=== PATIENT | female | born 1960 | race Caucasian/White ===

== ENCOUNTER 2017-08-11 08:08 | Outpatient (CLI) | payer BC ==
[2017-08-11 09:46] LABS: Hematocrit 42.5 % (36.0-47.0); Mean Platelet Volume 7.6 fL (7.4-10.4); Red Blood Cell (RBC) Count 4.69 mill/uL (4.20-5.40); White Blood Cell (WBC) Count 9.6 thou/uL (4.8-10.8)
[2017-08-11 10:09] LABS: Anion Gap 17 mmol/L (10-20); BUN (Urea Nitrogen) 34 mg/dL (9.8-20.1); Calc. Creatinine Clearance 0 mL/min (70-130); Calcium 10.6 mg/dL (7.8-10.44); Carbon Dioxide 22 mmol/L (22-29); Chloride 104 mmol/L (98-107); Estimated GFR-MDRD 37
--- NOTE | 2017-08-11 16:14 | EKG ---
Test Reason : Blood Pressure : / mmHG Vent. Rate : 066 BPM Atrial Rate : 066 BPM P-R Int : 142 ms QRS Dur : 092 ms QT Int : 436 ms P-R-T Axes : 003 -14 016 degrees QTc Int : 457 ms Normal sinus rhythm Low voltage QRS Cannot rule out Anterior infarct (cited on or before 13-SEP-2011) Abnormal ECG When compared with ECG of 15-MAY-2012 14:34, No significant change was found Confirmed by DR. Cipriano MILES ([id number]) on 08/11/2017 4:13:53 PM Referred By: WICHO Confirmed By:DR. Cipriano MILES
== END 2017-08-11 08:09 | disposition home or self-care (01) ==
LOC: LABBT 08:08
PROVIDERS: ATTEND Orthopaedic Surgery
CPT/HCPCS: 80048; 85027; 85610; 86850; 86900; 86901; 93005; 93010

== ENCOUNTER 2017-12-07 07:58 | Outpatient (CLI) | payer BC | END 2017-12-07 07:59 | disposition home or self-care (01) | LOC: BICMAMMO 07:58 | PROVIDERS: ATTEND Obstetrics & Gynecology | DX: Z12.31 Encounter for screening mammogram for malignant neoplasm of breast (principal) | CPT/HCPCS: 77063; 77067 ==

== ENCOUNTER 2018-03-25 17:25 | Observation (INO) | payer BC ==
[~2018-03-25 17:25] MED LIST: ISOVUE-370 76%-LOCM 1 ML ONE
[2018-03-25] MEDS ORDERED: Ondansetron ODT 4 MG TAB ONE (17:59)
--- NOTE | 2018-03-25 18:38 | RAD ---
PORTABLE UPRIGHT FRONTAL CHEST RADIOGRAPH: 03/25/2018 HISTORY: Short of breath. COMPARISON: None. FINDINGS: No pneumothorax, pleural fluid, focal consolidation, or alveolar edema. Heart and mediastinal contou r are unremarkable. IMPRESSION: No acute findings. POS: [facility]
[2018-03-25] MEDS ORDERED: Nitroglycerin 2% Ointment 1 INCH/1 GM Packet ONE (19:06)
[2018-03-25 19:11] LABS: #Basophils 0.1 thou/uL (0.0-0.2); #Eosinphils 0.1 thou/uL (0.0-0.7); #Monocytes 0.9 thou/uL (0.11-0.59); #Neutrophils 11.3 thou/uL (1.40-6.50); %Basophils 0.4 % (0.0-1.0); %Eosinophils 0.5 % (0.0-10.0); %Lymphocytes 14.1 % (21.0-51.0); %Monocytes 5.9 % (0.0-10.0); %Neutrophils 79.1 % (42.0-75.0); Hemoglobin 14.4 g/dL (12.0-16.0); Mean Corpuscular HGB CONC 35.1 g/dL (32.0-36.0); Mean Corpuscular Hemoglobin 31.8 pg (27.0-31.0); Mean Corpuscular Volume 90.4 fl (81.0-99.0); Mean Platelet Volume 7.5 fL (7.4-10.4); Platelet Count 264 thou/uL (130-400); RBC Distribution Width 11.8 % (11.5-14.5); Red Blood Cell (RBC) Count 4.53 mill/uL (4.20-5.40); White Blood Cell (WBC) Count 14.3 thou/uL (4.8-10.8)
[2018-03-25 19:33] LABS: ALT (SGPT) 28 U/L (8-55); AST (SGOT) 30 U/L (5-34); Albumin 4.3 g/dL (3.5-5.0); Alkaline Phosphatase 101 U/L (40-150); Anion Gap 15 mmol/L (10-20); BUN (Urea Nitrogen) 25 mg/dL (9.8-20.1); Bilirubin, Total 1.2 mg/dL (0.2-1.2); CK (CPK) 67 U/L (29-168); Calc. Creatinine Clearance 0 mL/min (70-130); Calcium 9.4 mg/dL (7.8-10.44); Carbon Dioxide 25 mmol/L (22-29); Estimated GFR-MDRD 51; Globulin 3.5 g/dL (2.4-3.5); Glucose 141 mg/dL (70-105); Lipase 31 U/L (8-78); Magnesium 2.2 mg/dL (1.6-2.6); Potassium 4.1 mmol/L (3.5-5.1); Protein, Total 7.8 g/dL (6.0-8.3)
[2018-03-25 19:36] LABS: CKMB 0.9 ng/mL (0-6.6); Troponin I Less than 0.010 ng/mL (< 0.028)
[2018-03-25 19:50] LABS: Chloride 105 mmol/L (98-107); Sodium 141 mmol/L (136-145)
--- NOTE | 2018-03-25 20:05 | CT ---
CT ANGIOGRAM CHEST: 03/25/2018 HISTORY: Chest pain with shortness of breath. COMPARISON: None. TECHNIQUE: Serial axial CT imaging is obtained at 2.5 mm intervals, from the thoracic inlet through the upper ab domen, with IV contrast, using a CT angiogram protocol. Coronal and oblique sagittal 3D reformatted imaging obtained. FINDINGS: There is no lymphadenopathy in the axillary, hilar, or mediastinal regions. Limited assessment of th e upper abdomen demonstrates no acute findings. No pleural, pericardial, or mediastinal fluid is seen. There is adequate opacification of the pulmonary arterial vasculature, with no discrete filling defec t noted on either side. No pleural, pericardial, or mediastinal fluid. No pneumothorax on either si de. The lung parenchyma appears grossly unremarkable bilaterally. There is an azygous lobe and fiss ure noted. There is no endobronchial lesion evident. No acute osseous abnormality. IMPRESSION: No CT angiographic evidence of pulmonary embolism. POS: [facility]
--- NOTE | 2018-03-25 21:08 | PDOC.FPRHP ---
- History of Present Illness Chief Complaint: chest pain, SOB History of Present Illness: PCP: Billie 57 yo F with PMH of HTN, HLD and glucose intolerance presents for evaluation of CP which started today while at home with her grandchild. The pt reports the pain struck suddenly was substernal, not worsened by exertion or relieved by nitro and reported associated tenderness to palpation. She did have associated cold sweats and nausea and vomiting X3 and some mild SOB. Pt reports a similar episode which occurred approx 1 year ago which woke her from sleep. At that time she wewnt to her PCP and was sent to cardiology for further evaluation. She subsequently underwent a stress test by Dr. Garrido and eventually a heart cath which was normal. Pt does endores some increased stress at work recently, otherwise no other symptoms. ED Course: Nitro paste, aspirin X1, zofran, 1LNS - Allergies/Adverse Reactions Allergies Allergy/AdvReac Type Severity Reaction Status Date / Time No Known Allergies Allergy Verified 08/15/17 16:24 - Home Medications Medication Instructions Recorded Confirmed Type Atorvastatin Calcium [Lipitor] 20 mg PO HS 08/11/17 03/25/18 History Cetirizine HCl [Zyrtec] 10 mg PO DAILY PRN 08/11/17 03/25/18 History Cyanocobalamin (Vitamin B-12) 1,000 mcg PO DAILY 08/11/17 03/25/18 History [Vitamin B-12 Oral Solution] Docusate Sodium [Stool Softener] 50 mg PO DAILY 08/11/17 03/25/18 History Fluticasone Propionate [Flonase 1 spray EA NARE DAILY 08/11/17 03/25/18 History Nasal [place]] Folic Acid/Multivit-Min/Lutein 1 tablet PO DAILY 08/11/17 03/25/18 History [Multi-Vitamin Gummies] Hydrochlorothiazide 25 mg PO DAILY 08/11/17 03/25/18 History Lisinopril [Zestril] 20 mg PO DAILY 08/11/17 03/25/18 History Magnesium Amino Acid Chelate 100 mg PO DAILY 08/11/17 03/25/18 History [Magnesium] Sennosides [Ex-Lax] 15 mg PO DAILY PRN 08/11/17 03/25/18 History Zinc 50 mg PO DAILY 08/11/17 03/25/18 History metFORMIN [Glucophage] 500 mg PO BID-WM 08/11/17 03/25/18 History - History PMHx: HTN, HLD, DMII PSHx: Rt total knee replacement, hysterectomy, c section X2 FHx: DMII paternal Social: Denies alcohol, tobacco, and drug use - Review of Systems General: denies: fever/chills, weight/appetite/sleep changes, fatigue Eyes: denies: vision changes ENT: denies: nasal congestion, rhinorrhea Respiratory: reports: shortness of breath. denies: cough, congestion, exercise intolerance Cardiovascular: reports: chest pain. denies: palpitation, edema Gastrointestinal: reports: nausea, vomiting. denies: diarrhea, constipation, abdominal pain Genitourinary: denies: incontinence, dysuria Skin: denies: rashes, lesions Musculoskeletal: denies: pain, tenderness, arthritis/arthralgias Neurological: denies: numbness, syncope Psychological: reports: anxiety - Vital signs BP: 138/76->71/34 HR: 48-59 RR: 20-24 Tmax: 97.4 Pox: 98-100% on RA Wt: 107.5Kg - Physical Exam Constitutional: NAD, awake, alert and oriented, well developed HEENT: normocephalic and atraumatic, PERRLA, EOMI, conjunctiva clear, no scleral icterus, grossly normal vision, grossly normal hearing, oropharynx clear Neck: supple, trachea midline, no LAD, no JVD Chest: other (tender to palpation) Heart: RRR, normal S1/S2, no murmurs/rubs/gallops, pulses present, no edema Lungs: CTAB, no respiratory distress, good air movement, no rales/rhonchi, no wheezing, no retractions Abdomen: soft, non-tender, bowel sounds present Musculoskeletal: normal structure, normal tone Neurological: no focal deficit, CN II-XII intact Skin: no rash/lesions, good turgor, capillary refill <2 seconds Heme/Lymphatic: no unusual bruising or bleeding, no petechia Psychiatric: normal mood and affect FMR H&P: Results - Labs Result Diagrams: 03/25/18 19:03 03/25/18 19:03 Lab results: WBC 14.3 thou/uL (4.8-10.8) H 03/25/18 19:03 Hgb 14.4 g/dL (12.0-16.0) 03/25/18 19:03 Hct 40.9 % (36.0-47.0) 03/25/18 19:03 MCV 90.4 fl (81.0-99.0) 03/25/18 19:03 Plt Count 264 thou/uL (130-400) 03/25/18 19:03 Neutrophils % 79.1 % (42.0-75.0) H 03/25/18 19:03 Sodium 141 mmol/L (136-145) 03/25/18 19:03 Potassium 4.1 mmol/L (3.5-5.1) 03/25/18 19:03 Chloride 105 mmol/L (98-107) 03/25/18 19:03 Carbon Dioxide 25 mmol/L (22-29) 03/25/18 19:03 BUN 25 mg/dL (9.8-20.1) H 03/25/18 19:03 Creatinine 1.10 mg/dL (0.6-1.1) 03/25/18 19:03 Glucose 141 mg/dL (70-105) H 03/25/18 19:03 Calcium 9.4 mg/dL (7.8-10.44) 03/25/18 19:03 Total Bilirubin 1.2 mg/dL (0.2-1.2) 03/25/18 19:03 AST 30 U/L (5-34) 03/25/18 19:03 ALT 28 U/L (8-55) 03/25/18 19:03 Alkaline Phosphatase 101 U/L (40-150) 03/25/18 19:03 Creatine Kinase 67 U/L (29-168) 03/25/18 19:03 CK-MB (CK-2) 0.9 ng/mL (0-6.6) 03/25/18 19:03 B-Natriuretic Peptide 52.2 pg/mL (0-100) 03/25/18 19:03 Serum Total Protein 7.8 g/dL (6.0-8.3) 03/25/18 19:03 Albumin 4.3 g/dL (3.5-5.0) 03/25/18 19:03 Lipase 31 U/L (8-78) 03/25/18 19:03 - EKG Interpretation EKG: Sinus bradycardia - Radiology Interpretation Chest x-ray Status: report reviewed by me (NAD) CT scan - chest Status: report reviewed by me (No evidence of pulmonary embolism) FMR H&P: A/P - Problem List (1) Atypical chest pain Current Visit: Yes Status: Acute Code(s): R07.89 - OTHER CHEST PAIN (2) Hyperlipidemia Current Visit: Yes Status: Acute Code(s): E78.5 - HYPERLIPIDEMIA, UNSPECIFIED (3) DM II (diabetes mellitus, type II), controlled Current Visit: No Status: Chronic Code(s): E11.9 - TYPE 2 DIABETES MELLITUS WITHOUT COMPLICATIONS Comment: Stable, resume Metformin, Accuchecks ac/hs (4) HTN (hypertension) Current Visit: No Status: Chronic Code(s): I10 - ESSENTIAL (PRIMARY) HYPERTENSION Qualifiers: Hypertension type: essential hypertension Qualified Code(s): I10 - Essential (primary) hypertension Comment: stable currently, resume Lisinopril and HCTZ, monitor serial BP trend - Plan 1) Atypical chest pain: given normal cardiac cath approx 1 year ago and atypical presentation likely not ACS, will continue to trend troponins X3, admit tele obs. - GI cocktail prn - AM stress - Elytes, tsh WNL - further workup pending am flp and stress test 2) HTN: Home meds 3) HLD: Home meds 4) Code status: full 5) PPX: scds, pepcid for dvt and GI ppx respectively 6) DMII: A1C 5.6, pre-diabetes. Continue metformin Disposition/LOS: stable </= 2 days FMR H&P: Upper Level - Pertinent history Pt is a 57 yo F who presented to the ED with chest tightness, diaphoresis and n/ v (multiple episodes) that started around 1600 this afternoon. States that she has never had an episode like this, was taking care of her grandchildren, not exerting herself, no recent hx of exertion CP or SOB. No sx of GERD. Does report that she has allergies and has been coughing every morning. Reports a cath in April of 2017 or 2016 she cannot remember that was negative, done by Dr. Garrido. She had this done due to "shadowing on the heart" on her 2 day stress and was told it was likely due to her larger chest area. - Pertinent findings 138/76 59 20 98% RA 97.5 BNP 52 Initial trop negative EKG sinus anna 48, no ST changes Gen: does not appear in distress HEENT: oropharynx clear without exudates or erythema Lungs: CTA Cardiac: RRR, TTP of chest LE: no swelling - Plan Date/Time: 03/25/18 7709 I, Dai Perea, have evaluated this patient and agree with findings/plan as outlined by manager intern resident. Pertinent changes/additions are listed here. 1. atypical C/P r/o-does not sound like progressive angina stable or unstable, possible costochondritis related to allergic cough. Given n/v, diaphroesis and squeezing feeling earlier in the day will risk stratify with labs and stress in AM 2. htn-continue home meds 3. pre-DM II- reports last A1c of 5.6 before she was started on metformin, will check in AM 4. hld-continue home meds Attending Addendum - Attending Addendum Date/Time: 03/26/18 [id number] I personally evaluated the patient and discussed the management with Dr. Macias. I agree with the History, Examination, Assessment and Plan documented above with any addition or exceptions noted below.
[2018-03-25 21:52] LABS: Troponin I Less than 0.010 ng/mL (< 0.028)
[2018-03-25] MEDS ORDERED: Ondansetron ODT 4 MG TAB SL PRN (22:37)
[2018-03-25] MEDS ORDERED: Ondansetron HCl/PF 4 MG/2 ML Vial IVP PRN ×2 (22:37→23:27)
[2018-03-25] MEDS ORDERED: Acetaminophen 325 MG TAB PO PRN (22:37)
[2018-03-25] MEDS ORDERED: Ondansetron ODT 4 MG TAB PO PRN (23:27)
[2018-03-25] MEDS ORDERED: Dextrose 5% in Water 1,000 ML IV PRN (23:27)
[2018-03-25] MEDS ORDERED: Dextrose 50% Abboject 50 ML SYRINGE SLOW IVP PRN (23:27)
[2018-03-25] MEDS ORDERED: Nitroglycerin 0.4 MG TAB (25 Tab Bottle) PO PRN (23:31)
--- NOTE | 2018-03-25 23:40 | PDOC.EVN ---
Event Note - Event Note Event Note: Patient seen and care discussed with Dr Macias. See H&P.
[2018-03-25] MEDS ORDERED: Lidocaine 2% Viscous Solution 10 ML, Aluminum & Magnesium Hydroxide 30 ML SSW SCH (23:45)
[2018-03-26 00:40] VITALS: BMI 45.1
[2018-03-26 00:51] LABS: Troponin I 0.021 ng/mL (< 0.028)
[2018-03-26] MEDS ORDERED: Cetirizine HCl 10 MG TAB PO PRN (01:35)
[2018-03-26] MEDS ORDERED: Senokot 8.6 MG TAB PO PRN (01:35)
[2018-03-26 06:12] LABS: Anion Gap 18 mmol/L (10-20); BUN (Urea Nitrogen) 22 mg/dL (9.8-20.1); Calc. Creatinine Clearance 98 mL/min (70-130); Carbon Dioxide 17 mmol/L (22-29); Cardiac Risk 3.1 (Less than 4.5); Chloride 110 mmol/L (98-107); Cholesterol 144 mg/dl (< 200 Desired); Estimated GFR-MDRD 53; Glucose 136 mg/dL (70-105); HDL Cholesterol 46 mg/dL (>60 Neg Risk); LDL Cholesterol, Calculated 70 mg/dL; Potassium 4.4 mmol/L (3.5-5.1); Sodium 141 mmol/L (136-145); Triglycerides 132 mg/dL (Less than 150)
--- NOTE | 2018-03-26 06:18 | PDOC.FM ---
- Subjective Subjective: Ms. Coelho is feeling slightly improved this morning. She continues to endorse 4 /10 chest pain in the middle of her sternum that does not radiate. It is a squeezing pain. She denies any further n/v/diaphoresis and says that the pain was slightly improved with the GI cocktail. It is not reproducible this morning. She denies any relief with nitro patch. When asked about a heart murmur she states she was told she had one at 16 but does not know of any specific diagnosis. She has never had severe reflux but does endorse some worsening constipation over the last year. She gets screening colonoscopies every [address] Mathias - laureen in 2015. She has lost approximately 60 pounds over the last 12-18 months and has been walking regularly. - Objective MAR Reviewed: Yes Vital Signs & Weight: Vital Signs (12 hours) Temp Pulse Resp BP Pulse Ox 03/26/18 04:12 98.4 F 62 18 114/56 L 96 03/26/18 00:51 98.0 F 60 20 Weight Weight 108.454 kg I&O: 03/24/18 03/25/18 03/26/18 06:59 06:59 06:59 Intake Total 420 Balance 420 Result Diagrams: 03/26/18 04:23 03/26/18 04:23 EKG Reviewed by me: Yes Radiology Reviewed by me: Yes <Lorena Mireles - Last Filed: 03/26/18 10:50> - Objective Vital Signs & Weight: Vital Signs (12 hours) Temp Pulse Resp BP BP Pulse Ox 03/26/18 10:48 98.5 F 68 22 H 110/51 L 97 03/26/18 08:01 114/56 L 03/26/18 07:29 98.4 F 62 18 03/26/18 07:05 99.1 F 64 12 111/57 L 92 L 03/26/18 04:12 98.4 F 62 18 114/56 L 96 Weight Weight 108.454 kg I&O: 03/25/18 03/26/18 03/27/18 06:59 06:59 06:59 Intake Total 420 Balance 420 Result Diagrams: 03/26/18 04:23 03/26/18 04:23 <Александр Howe - Last Filed: 06/18/18 14:47> Phys Exam - Physical Examination Constitutional: NAD HEENT: moist MMs, sclera anicteric Neck: no JVD, supple Respiratory: no wheezing Cardiovascular: RRR 2/6 faint systolic murmur Gastrointestinal: soft, non-tender, no distention, positive bowel sounds Musculoskeletal: no edema, pulses present 2+ in BL radial and dorsalis pedis Neurological: non-focal, normal sensation, moves all 4 limbs Psychiatric: normal affect, A&O x 3 Skin: no rash, normal turgor, cap refill <2 seconds <Lorena Mireles - Last Filed: 03/26/18 10:50> Dx/Plan (1) Atypical chest pain Code(s): R07.89 - OTHER CHEST PAIN Status: Acute (2) Hyperlipidemia Code(s): E78.5 - HYPERLIPIDEMIA, UNSPECIFIED Status: Acute (3) DM II (diabetes mellitus, type II), controlled Code(s): E11.9 - TYPE 2 DIABETES MELLITUS WITHOUT COMPLICATIONS Status: Chronic (4) HTN (hypertension) Code(s): I10 - ESSENTIAL (PRIMARY) HYPERTENSION Status: Chronic QualifierTitle: Hypertension type: essential hypertension Qualified Code( s): I10 - Essential (primary) hypertension - Plan Plan: 57 yo F with atypical chest pain 1. Atypical Chest Pain - Possibly reflux related with improvement with GI cocktail - HEART score 4 - ASCVD risk 2.5% (10-year) - Trop neg x4 - Given n/v, diaphoresis and squeezing sensation with onset of pain yesterday, will continue with plan for stress today - If stress negative, f/u with Cardiology OP and recommend f/u for reflux symptoms including efficacy of PPI vs. H pylori testing vs. EGD - RUQ sono with rapid (intentional) weight loss to look for biliary colic and will give trial of Bentyl 2. HTN - Continue lisinopril and HCTZ 3. Pre-DM II - Reports last A1c of 5.6 before she was started on metformin, repeat pending this morning 4. HLD - Continue atorvastatin - FLP reviewed - ASCVD risk 2.5% (10-year), will keep current statin dose, no indication for ASA at this time 5. Seasonal allergies - Continue home meds 6. Constipation - May be contributing to pain but unlikely source of acute pain this visit - Continue high fiber and stool softeners - Consider sooner f/u with GI as above - Denies melena or BRBPR PPX: SCDs, will consider starting protonix <Lorena Mireles - Last Filed: 03/26/18 10:50> Attending Addendum - Attending Addendum Date/Time: 03/26/18 1440 I personally evaluated the patient and discussed the management with Dr. Mireles I agree with the History, Examination, Assessment and Plan documented above with any addition or exceptions noted below.Stress test negative,patient self reported Coronary Catherization approximately [address] Perera was wnl. Doubt prinzmetal angina feel source atypical chest pain is GI related, given weight loss 60 lbs over one year GB US r/o cholelithiasis ok to d/c home on PPI with further work up as outpatient prn. Note slightly elevated WBC no fever CXR wnl. Note heart murmur need evaluate prior coronary catherization and echocardiogram. <Александр Howe - Last Filed: 03/26/18 14:47>
[2018-03-26 06:58] LABS: #Lymphocytes 1.5 thou/uL (1.20-3.40); #Monocytes 1.1 thou/uL (0.11-0.59); #Neutrophils 11.3 thou/uL (1.40-6.50); %Basophils 0.1 % (0.0-1.0); %Eosinophils 0.1 % (0.0-10.0); %Neutrophils 80.7 % (42.0-75.0); Hemoglobin 13.1 g/dL (12.0-16.0); Mean Corpuscular Hemoglobin 31.6 pg (27.0-31.0); Mean Corpuscular Volume 90.3 fl (81.0-99.0); Mean Platelet Volume 7.5 fL (7.4-10.4); Platelet Count 250 thou/uL (130-400); RBC Distribution Width 11.9 % (11.5-14.5); Red Blood Cell (RBC) Count 4.15 mill/uL (4.20-5.40)
[2018-03-26] MEDS: metFORMIN 500 MG TAB PO SCH ×2 (07:59→16:22)
[2018-03-26] MEDS: Docusate 100 MG CAP PO SCH (07:59)
[2018-03-26] MEDS: Magnesium Oxide 250 MG TAB PO SCH (08:00)
[2018-03-26] MEDS: Hydrochlorothiazide 25 MG TAB PO SCH ×2 (08:00→08:05)
[2018-03-26] MEDS: Cyanocobalamin (Vitamin B-12) 1,000 MCG TAB PO SCH (08:00)
[2018-03-26] MEDS: Famotidine 20 MG TAB PO SCH ×2 (08:00→20:18)
[2018-03-26] MEDS: Aspirin 81 mg Enteric Coated Tablet PO SCH (08:00)
[2018-03-26] MEDS: Multivit, Therapeutic 1 TAB PO SCH (08:00)
[2018-03-26] MEDS: Fluticasone Propionate Nasal Spray 16 gm Bottle NASAL SCH (08:01)
[2018-03-26] MEDS: Lisinopril 20 MG TAB PO SCH (08:01)
[2018-03-26] MEDS: Zinc Sulfate 220 MG CAP PO SCH (08:01)
[2018-03-26 08:47] LABS: Hemoglobin A1c 5.2 % (4.0-6.0)
[2018-03-26] MEDS ORDERED: Aspirin 325 MG TAB PO SCH (09:00)
[2018-03-26 09:19] LABS: Troponin I Less than 0.010 ng/mL (< 0.028)
[2018-03-26] MEDS ORDERED: ADENOSINE 60 MG/20 ML VIAL ONE (09:32)
[2018-03-26] MEDS: Dicyclomine 10 MG/5 ML UDCUP PO ONE ×2 (11:03→12:33)
--- NOTE | 2018-03-26 12:14 | NM ---
CARDIAC SPECT: HISTORY: A 57-year-old female with chest pain, hypertension, diabetes, dyslipidemia. TECHNIQUE: A stress-only myocardial perfusion scan was performed following the intravenous administration of 33 mCi Technetium 99m-sestamibi injected intravenously. Pharmacologic stress with adenosine was monito red and interpreted by Kenisha August FINDINGS: Fairly homogeneous tracer distribution is seen in the myocardial segments on the post stress images.. GATED SPECT LVEF: 77%. WALL MOTION EXAM: Normal. IMPRESSION: Normal post-stress myocardial perfusion scan. POS: [facility]
[2018-03-26] MEDS ORDERED: Dicyclomine 10 MG/5 ML UDCUP PO SCH (12:30)
--- NOTE | 2018-03-26 12:53 | ULT ---
RIGHT UPPER QUADRANT ULTRASOUND: DATE: 03/26/18. HISTORY: Epigastric pain, rapid weight loss. COMPARISON: None available. FINDINGS: The majority of the pancreas is obscured by bowel gas. The visualized portions of the pancreatic hea d demonstrate a normal sonographic appearance. The liver demonstrates mild increased echogenicity suggesting diffuse fatty infiltration. No focal h epatic lesion is appreciated. There is a small amount of echogenic material within the gallbladder lumen likely related to a small amount of gallbladder sludge. No gallbladder calculus is visualized. There is mild thickening of th e gallbladder wall which measures 0.8 cm in thickness with mild edematous appearance of the gallbladd er wall. There is also a trace amount of pericholecystic fluid present. The common duct is normal i n caliber measuring 0.3 cm in diameter. The right kidney demonstrates a normal sonographic appearance measuring 10.1 cm in length. The limit ed visualized portions of the IVC demonstrate a normal sonographic appearance. IMPRESSION: 1. Edematous appearance of the gallbladder wall with a trace amount of pericholecystic fluid and a s mall amount of sludge. No gallbladder calculi are seen. In the correct clinical scenario, the findi ngs could be attributable to acalculous cholecystitis. Hepatobiliary study may be helpful for furthe r evaluation depending on clinical concern. 2. The common duct is normal in caliber. 3. Mild fatty infiltration of the liver. POS: [facility]
[2018-03-26 18:29] LABS: ALT (SGPT) 159 U/L (8-55); AST (SGOT) 171 U/L (5-34); Albumin 3.7 g/dL (3.5-5.0); Alkaline Phosphatase 129 U/L (40-150); Bilirubin, Direct 0.7 mg/dL (0.1-0.3); Bilirubin, Total 1.7 mg/dL (0.2-1.2); Protein, Total 6.4 g/dL (6.0-8.3)
[2018-03-26] MEDS: Atorvastatin Calcium 20 MG TAB PO SCH (20:18)
[2018-03-26 20:25] LABS: Bilirubin Negative (Negative); Blood, Urine Negative (Negative); Clarity CLEAR (Clear); Glucose, Urine (Dipstick) Negative (Negative); Leukocyte Negative (Negative); Nitrite Negative (Negative); Protein, Urine (Dipstick) Negative (Neg-Trace); Specific Gravity, Urine 1.023 (1.002-1.036); Urobilinogen 0.2 mg/dL (0.2-1.0); pH, Urine 5.5 (5.0-9.0)
[2018-03-26] MEDS ORDERED: traMADol HCl 50 MG TAB PO SCH (20:45)
[2018-03-27 05:00] LABS: #Basophils 0.1 thou/uL (0.0-0.2); #Eosinphils 0.1 thou/uL (0.0-0.7); #Lymphocytes 3.1 thou/uL (1.20-3.40); #Monocytes 0.7 thou/uL (0.11-0.59); #Neutrophils 4.4 thou/uL (1.40-6.50); %Basophils 0.7 % (0.0-1.0); %Eosinophils 1.6 % (0.0-10.0); %Lymphocytes 36.6 % (21.0-51.0); %Monocytes 8.3 % (0.0-10.0); %Neutrophils 52.8 % (42.0-75.0); Hemoglobin 13.5 g/dL (12.0-16.0); Mean Corpuscular HGB CONC 34.4 g/dL (32.0-36.0); Mean Corpuscular Hemoglobin 31.4 pg (27.0-31.0); Mean Corpuscular Volume 91.3 fl (81.0-99.0); Mean Platelet Volume 7.7 fL (7.4-10.4); Platelet Count 201 thou/uL (130-400); Red Blood Cell (RBC) Count 4.29 mill/uL (4.20-5.40); White Blood Cell (WBC) Count 8.4 thou/uL (4.8-10.8)
[2018-03-27 05:09] LABS: ALT (SGPT) 223 U/L (8-55); AST (SGOT) 125 U/L (5-34); Albumin 3.6 g/dL (3.5-5.0); Alkaline Phosphatase 160 U/L (40-150); Anion Gap 10 mmol/L (10-20); BUN (Urea Nitrogen) 15 mg/dL (9.8-20.1); Bilirubin, Total 1.4 mg/dL (0.2-1.2); Calc. Creatinine Clearance 109 mL/min (70-130); Calcium 8.8 mg/dL (7.8-10.44); Carbon Dioxide 26 mmol/L (22-29); Chloride 107 mmol/L (98-107); Estimated GFR-MDRD 60; Globulin 2.8 g/dL (2.4-3.5); Glucose 87 mg/dL (70-105); Potassium 4.1 mmol/L (3.5-5.1); Protein, Total 6.4 g/dL (6.0-8.3); Sodium 139 mmol/L (136-145)
--- NOTE | 2018-03-27 06:13 | PDOC.FM ---
- Subjective Subjective: Chest pain has resolved. She is not having any notable abdominal pain and tolerated dinner last night. She is open to discussing with general surgery their recommendations. - Objective MAR Reviewed: Yes Vital Signs & Weight: Vital Signs (12 hours) Temp Pulse Resp BP Pulse Ox 03/27/18 04:19 98.4 F 52 L 16 113/59 L 97 03/26/18 20:18 98.8 F 73 18 03/26/18 19:05 98.8 F 73 18 108/52 L 94 L Weight Weight 108.454 kg I&O: 03/25/18 03/26/18 03/27/18 06:59 06:59 06:59 Intake Total 420 1040 Balance 420 1040 Result Diagrams: 03/27/18 04:17 03/27/18 04:17 <Lorena Mireles - Last Filed: 03/27/18 12:00> - Objective Vital Signs & Weight: Vital Signs (12 hours) Temp Pulse Resp BP Pulse Ox 03/27/18 10:39 98.1 F 59 L 12 106/53 L 94 L 03/27/18 08:00 98.3 F 57 L 12 03/27/18 07:05 98.3 F 57 L 12 116/61 96 03/27/18 04:19 98.4 F 52 L 16 113/59 L 97 Weight Weight 108.454 kg I&O: 03/26/18 03/27/18 03/28/18 06:59 06:59 06:59 Intake Total 420 1040 Balance 420 1040 Result Diagrams: 03/27/18 04:17 03/27/18 04:17 <Александр Howe - Last Filed: 03/27/18 13:00> Phys Exam - Physical Examination Constitutional: NAD HEENT: moist MMs, sclera anicteric Neck: supple Respiratory: no wheezing, no rales Cardiovascular: RRR 2/6 systolic murmur R sternal border Gastrointestinal: soft, non-tender, no distention, positive bowel sounds Musculoskeletal: no edema, pulses present Neurological: non-focal, moves all 4 limbs Psychiatric: normal affect, A&O x 3 Skin: normal turgor <Lorena Mireles - Last Filed: 03/27/18 12:00> Dx/Plan (1) Atypical chest pain Code(s): R07.89 - OTHER CHEST PAIN Status: Acute (2) Hyperlipidemia Code(s): E78.5 - HYPERLIPIDEMIA, UNSPECIFIED Status: Acute (3) DM II (diabetes mellitus, type II), controlled Code(s): E11.9 - TYPE 2 DIABETES MELLITUS WITHOUT COMPLICATIONS Status: Chronic (4) HTN (hypertension) Code(s): I10 - ESSENTIAL (PRIMARY) HYPERTENSION Status: Chronic QualifierTitle: Hypertension type: essential hypertension Qualified Code( s): I10 - Essential (primary) hypertension - Plan Plan: 57 yo F with atypical chest pain, possibly related to acalculous chol 1. Possible acalculous cholecystitis - RUQ sono showed edematous appearance of gallbladder wall with trace pericholecystic fluid and small amount of sludge - LFTs increased yesterday, AM labs were not shown until later because hepatic panel was added on - Discussed with Dr. Cosby who will notify Dr. Martin - Hida scan ordered but patient is "too radioactive" for study, will d/w general surgery whether they would like to proceed with that - NPO 2. Atypical Chest Pain - Possibly reflux related with improvement with GI cocktail - Added PPI and bentyl PRN - HEART score 4 - ASCVD risk 2.5% (10-year) - Trop neg x4 - Given n/v, diaphoresis and squeezing sensation with onset of pain yesterday, stress ordered which was negative - f/u with Cardiology OP and recommend f/u for reflux symptoms including efficacy of PPI vs. H pylori testing vs. EGD 3. HTN - Continue lisinopril and HCTZ 4. Pre-DM II - Continue metformin 5. HLD - Continue atorvastatin - FLP reviewed - ASCVD risk 2.5% (10-year), will keep current statin dose, no indication for ASA at this time 6. Seasonal allergies - Continue home meds 7. Constipation - May be contributing to pain but unlikely source of acute pain this visit - Continue high fiber and stool softeners - Consider sooner f/u with GI as above - Denies melena or BRBPR PPX: SCDs, protonix <Lorena Mireles - Last Filed: 03/27/18 12:00> Attending Addendum - Attending Addendum Date/Time: 03/27/18 1259 I personally evaluated the patient and discussed the management with Dr. Mireles I agree with the History, Examination, Assessment and Plan documented above with any addition or exceptions noted below.Will await opinion of General Surgery Patient at present asymptomatic without complaints. <Александр Howe - Last Filed: 03/27/18 13:00>
[2018-03-27] MEDS ORDERED: Lidocaine 1% PF 5 ML VIAL ONE (13:20)
[2018-03-27] MEDS ORDERED: Ondansetron HCl/PF 4 MG/2 ML Vial ONE (13:20)
[2018-03-27] MEDS ORDERED: Dexamethasone 20 MG/5 ML VIAL ONE (13:20)
[2018-03-27] MEDS ORDERED: PROPOFOL 200 MG/20 ML VIAL ONE (13:20)
[2018-03-27] MEDS ORDERED: Glycopyrrolate 0.2 MG/ML 5 ML SYRINGE ONE (13:20)
[2018-03-27] MEDS ORDERED: CEFAZOLIN/Water 2 GM/20 ML SYRINGE SLOW IVP SCH (14:30)
[2018-03-27] MEDS ORDERED: Iothalamate Meglumine 60% 50 ML VIAL FS ONE (15:21)
[2018-03-27] MEDS ORDERED: Bupivacaine/Epinephrine 0.25% 30 ML VIAL ONE (15:21)
[2018-03-27] MEDS ORDERED: CEFAZOLIN/Water 2 GM/20 ML SYRINGE ONE (15:41)
[2018-03-27] MEDS ORDERED: Fentanyl 100 MCG/2 ML VIAL ONE ×3 (15:45→18:31)
[2018-03-27] MEDS: Aspirin 81 mg Enteric Coated Tablet PO SCH (16:26)
[2018-03-27] MEDS: Cyanocobalamin (Vitamin B-12) 1,000 MCG TAB PO SCH (16:26)
[2018-03-27] MEDS: Fluticasone Propionate Nasal Spray 16 gm Bottle NASAL SCH (16:26)
[2018-03-27] MEDS: Docusate 100 MG CAP PO SCH (16:26)
[2018-03-27] MEDS: metFORMIN 500 MG TAB PO SCH ×2 (16:26→18:17)
[2018-03-27] MEDS: Famotidine 20 MG TAB PO SCH ×2 (16:26→20:36)
[2018-03-27] MEDS: Multivit, Therapeutic 1 TAB PO SCH (16:27)
[2018-03-27] MEDS: Magnesium Oxide 250 MG TAB PO SCH (16:27)
[2018-03-27] MEDS: Hydrochlorothiazide 25 MG TAB PO SCH (16:27)
[2018-03-27] MEDS: Lisinopril 20 MG TAB PO SCH (16:27)
[2018-03-27] MEDS: Zinc Sulfate 220 MG CAP PO SCH (16:27)
[2018-03-27] MEDS ORDERED: Promethazine HCl 25 MG/ML VIAL SLOW IVP PRN (17:51)
[2018-03-27] MEDS ORDERED: Promethazine HCl 25 MG/ML VIAL IM PRN (17:51)
[2018-03-27] MEDS ORDERED: Ondansetron HCl/PF 4 MG/2 ML Vial IVP PRN ×3 (17:51→23:15)
[2018-03-27] MEDS ORDERED: Loratadine 10 MG TAB PO PRN (18:03)
[2018-03-27] MEDS ORDERED: HYDROcodone/Acetaminophen 7.5/325 mg Tablet PO PRN (18:05)
[2018-03-27] MEDS ORDERED: traMADol HCl 50 MG TAB PO PRN ×2 (18:07)
--- NOTE | 2018-03-27 19:21 | RAD ---
INTRAOPERATIVE CHOLANGIOGRAM 2 VIEWS: 03/27/18 HISTORY: 57-year-old female with diagnosis of acalculous cholecystitis, status post cholecystectomy. FINDINGS: Injection into cystic duct stump (where there are surgical clips) demonstrate mild dilation of the up per aspect of the common bile duct, the common hepatic duct, and the lower portions of the left and r ight hepatic ducts. The common bile duct tapers to a thin, normal caliber inferiorly. There is contra st material in the duodenum. No filling defect is identified. IMPRESSION: 1. Status post cholecystectomy. 2. Nonspecific mild dilation of the biliary tree without evidence of high grade obstruction. POS: [facility]
[2018-03-27] MEDS: Sodium Chloride 0.9% 1,000 ML IV SCH (19:25)
[2018-03-27] MEDS: Piperacillin/Tazobactam 3.375 GM in Sodium Chloride 0.9% 100 ML IVPB SCH ×2 (19:25→23:50)
--- NOTE | 2018-03-27 20:28 | CON ---
DATE OF CONSULTATION: 03/27/2018 HISTORY OF PRESENT ILLNESS: Ms. Coelho is a 57-year-old woman admitted to the Medicine Service for rule out MA. She had sudden onset of severe substernal chest pain radiating to her back associated with nausea. This happened around 5 :00 in the afternoon. She had eaten a good breakfast, but had not had anything since except chocolate milk a few hours before her episode, so did not associate the pain with eating. She states that she had a similar episode, although it was not as persistent or severe, about a year ago which happened in the middle of the night. It went away, but it was alarming enough that she went to her primary care doctor the next day and was set up with Cardiology for stress testing. This showed a possible abnormality on her stress test, but cardiac catheterization was normal and ejection fraction was good and she was given a clean bill of health. She came into the emergency room because she was worried she might be having heart attack. CT angio was negative and enzymes were negative. Initially, her LFTs were normal too, but they have gone up since admission and a gallbladder ultrasound showed some sludge in the gallbladder with gallbladder wall thickening and pericholecystic fluid worrying for acalculous cholecystitis. The patient states that her pain has completely resolved. She does not usually have any problems after eating, and has not had any jaundice or icterus, fevers or chills. PAST MEDICAL HISTORY: Borderline diabetes, hypertension, and mild hyperlipidemia. PAST SURGICAL HISTORY: , hysterectomy, knee replacement, and ORIF of a fracture of the right lower extremity. REVIEW OF SYSTEMS: Ten system review of system is negative except per HPI. In addition, while the patient was having her severe pain, she felt short of breath and bloated. FAMILY HISTORY: Noncontributory. SOCIAL HISTORY: She is here with her . No history of heavy alcohol or drug use. She has been exercising and losing weight. She has lost about 60 pounds in the past year. PHYSICAL EXAMINATION: VITAL SIGNS: Patient is afebrile, heart rate in the 50s, respirations 12-16, 94 %-97% saturated on room air, blood pressure 106/53. GENERAL: Reveals a healthy woman in no acute distress. She is not flushed or toxic. She is not jaundiced or icteric. HEENT: Unremarkable. NECK: Supple, without lymphadenopathy or thyroid nodules. HEART: Regular in its rate and rhythm without murmurs, rubs or gallops. LUNGS: Clear to auscultation bilaterally. She has no pain with deep inspiration. ABDOMEN: Soft, nontender and nondistended with a negative Segura sign. EXTREMITIES: Warm and well perfused without edema. NEUROLOGIC: No focal deficits. PSYCHIATRIC: Alert, oriented, and appropriate. LABORATORY DATA: White count is normal at 8.4, it was mildly elevated on admission at 14.3, hematocrit is 39 and platelets are 201. Electrolytes are unremarkable, but bilirubin is mildly elevated at 1.4, AST and ALT are 125 and 223 and alkaline phosphatase is 160. These were all normal on admission and then went up as high as 1.7 on her bilirubin 171 and 159 on AST, and ALT. IMAGING DATA: Chest x-ray and CT angio are unremarkable. Abdominal ultrasound shows gallbladder wall thickening and pericholecystic fluid as well as some sludge in the gallbladder. Common bile duct is normal in caliber and a nuclear medicine stress test showed no wall motion abnormalities and 77% ejection fraction. ASSESSMENT AND PLAN: Acalculous cholecystitis, which has symptomatically resolved. I think based on the elevated LFTs and the abnormal gallbladder ultrasound, there is enough evidence to recommend laparoscopic cholecystectomy with intraoperative cholangiogram. There is a possibility that she may have passed a gallstone, although she only had sludge seen on her ultrasound. However , this could explain the mild elevation in her LFTs, which does seem to be improving. Patient is currently asymptomatic, so if she decides not to proceed with laparoscopic cholecystectomy, then observation alone on a low-fat diet could be considered. A HIDA scan might be useful, but cannot be obtained today due to her recent nuclear medicine stress test. We discussed the pros and cons of operative intervention versus observation. Main disadvantage of observation is that her symptoms could recur. I do think that her episodes of chest pain are likely due to her gallbladder given her negative cardiac workup and the abnormal ultrasound findings. It does not appear that she had any ultrasound workup at the time of her first chest pain episode. The drawbacks of surgery are just the risks associated with surgery. This could almost certainly be done laparoscopically, but there are risks of bleeding, infection, risks of anesthesia, damage to nearby structures, need for other operations and need for open surgery. She understands and accepts these risks. She and her are considering their options and trying to decide on a course of action. If she does decide to proceed with observation, I would recommend that she stay on a low-fat diet to try to address the sludge in her gallbladder. All their questions were answered and I will check back later to see what they have decided. WILLIE
[2018-03-27] MEDS: Atorvastatin Calcium 20 MG TAB PO SCH (20:36)
[2018-03-28] MEDS: Sodium Chloride 0.9% 1,000 ML IV SCH ×2 (03:38→11:22)
[2018-03-28 05:26] LABS: #Lymphocytes 0.9 thou/uL (1.20-3.40); #Monocytes 0.7 thou/uL (0.11-0.59); %Basophils 0.1 % (0.0-1.0); %Eosinophils 0.2 % (0.0-10.0); %Lymphocytes 7.1 % (21.0-51.0); %Monocytes 5.7 % (0.0-10.0); Hemoglobin 12.7 g/dL (12.0-16.0); Mean Corpuscular HGB CONC 34.4 g/dL (32.0-36.0); Mean Corpuscular Hemoglobin 31.4 pg (27.0-31.0); Mean Corpuscular Volume 91.2 fL (78.0-98.0); Mean Platelet Volume 8.1 fL (7.4-10.4); Platelet Count 228 thou/uL (130-400); RBC Distribution Width 11.7 % (11.5-14.5); Red Blood Cell (RBC) Count 4.05 mill/uL (4.20-5.40); White Blood Cell (WBC) Count 12.7 thou/uL (4.8-10.8)
[2018-03-28] MEDS: Piperacillin/Tazobactam 3.375 GM in Sodium Chloride 0.9% 100 ML IVPB SCH ×2 (05:54→11:22)
[2018-03-28 06:01] LABS: ALT (SGPT) 169 U/L (8-55); AST (SGOT) 85 U/L (5-34); Albumin 3.4 g/dL (3.5-5.0); Alkaline Phosphatase 156 U/L (40-150); Anion Gap 13 mmol/L (10-20); BUN (Urea Nitrogen) 18 mg/dL (9.8-20.1); Bilirubin, Total 1.2 mg/dL (0.2-1.2); Calc. Creatinine Clearance 86 mL/min (70-130); Calcium 8.9 mg/dL (7.8-10.44); Carbon Dioxide 25 mmol/L (22-29); Chloride 107 mmol/L (98-107); Estimated GFR-MDRD 45; Globulin 3.1 g/dL (2.4-3.5); Glucose 129 mg/dL (70-105); Potassium 4.7 mmol/L (3.5-5.1); Protein, Total 6.5 g/dL (6.0-8.3); Sodium 140 mmol/L (136-145)
--- NOTE | 2018-03-28 06:12 | PDOC.FM ---
- Subjective Subjective: Ms. Coelho is feeling ok this morning. She says she feels like she was in a boxing match but pain is improved with pain meds. Tolerating breakfast this morning and not having any further chest pain. - Objective MAR Reviewed: Yes Vital Signs & Weight: Vital Signs (12 hours) Temp Pulse Resp BP BP Pulse Ox 03/28/18 03:29 96 03/28/18 03:25 98.9 F 57 L 18 127/58 L 90 L 03/27/18 23:50 98.9 F 54 L 14 106/59 L 93 L 03/27/18 21:30 55 L 16 107/53 L 94 L 03/27/18 21:00 53 L 16 118/58 L 96 03/27/18 20:20 57 L 16 108/57 L 95 03/27/18 19:51 57 L 16 126/60 91 L 03/27/18 19:19 97.5 F L 55 L 14 119/57 L 94 L 03/27/18 19:15 97.5 F L 55 L 14 Weight Weight 109.633 kg I&O: 03/26/18 03/27/18 03/28/18 06:59 06:59 06:59 Intake Total 420 1040 1503 Output Total 400 Balance 420 1040 1103 Result Diagrams: 03/28/18 03:57 03/28/18 03:57 EKG Reviewed by me: Yes <Lorena Mireles - Last Filed: 03/28/18 08:17> - Objective Vital Signs & Weight: Vital Signs (12 hours) Temp Pulse Resp BP BP Pulse Ox 03/28/18 09:00 96 03/28/18 08:20 99/50 L 03/28/18 08:00 98.0 F 53 L 12 03/28/18 07:40 98.0 F 53 L 12 98/54 L 93 L 03/28/18 03:29 96 03/28/18 03:25 98.9 F 57 L 18 127/58 L 90 L 03/27/18 23:50 98.9 F 54 L 14 106/59 L 93 L Weight Weight 109.633 kg I&O: 03/27/18 03/28/18 03/29/18 06:59 06:59 06:59 Intake Total 1040 1503 Output Total 400 Balance 1040 1103 Result Diagrams: 03/28/18 03:57 03/28/18 03:57 <ShyamАлександр - Last Filed: 03/28/18 10:08> Phys Exam - Physical Examination Constitutional: NAD HEENT: PERRLA, moist MMs Neck: supple Respiratory: no wheezing, clear to auscultation bilateral Cardiovascular: RRR faint 2/6 systolic murmur Gastrointestinal: soft appropriately TTP, 5 incision sites clean and dry Musculoskeletal: no edema Neurological: non-focal, moves all 4 limbs Psychiatric: normal affect, A&O x 3 Skin: normal turgor Deviation from normal: appropriate erythema surrounding incision sites <Lorena Mireles - Last Filed: 03/28/18 08:17> Dx/Plan (1) Atypical chest pain Code(s): R07.89 - OTHER CHEST PAIN Status: Acute (2) Hyperlipidemia Code(s): E78.5 - HYPERLIPIDEMIA, UNSPECIFIED Status: Acute (3) DM II (diabetes mellitus, type II), controlled Code(s): E11.9 - TYPE 2 DIABETES MELLITUS WITHOUT COMPLICATIONS Status: Chronic (4) HTN (hypertension) Code(s): I10 - ESSENTIAL (PRIMARY) HYPERTENSION Status: Chronic QualifierTitle: Hypertension type: essential hypertension Qualified Code( s): I10 - Essential (primary) hypertension - Plan Plan: 57 yo F with atypical chest pain, likely related to acalculous cholecystitis 1. Acalculous cholecystitis, s/p cholecystectomy, POD #1 - Appreciate Dr. Rubio's assistance - RUQ sono showed edematous appearance of gallbladder wall with trace pericholecystic fluid and small amount of sludge - LFTs downtrending, H&H stable, slight bump in WBC - Likely discharge today 2. Atypical Chest Pain, resolved - Likely related to #1 - Possibly associated with reflux related with improvement with GI cocktail - Added PPI and bentyl PRN - HEART score 4 - ASCVD risk 2.5% (10-year) - Trop neg x4 - Stress negative - f/u with Cardiology OP and recommend f/u for reflux symptoms including efficacy of PPI vs. H pylori testing vs. EGD 3. HTN - Continue lisinopril and HCTZ - Low-normal while here and they have been held - Continue monitoring at home and discuss adjustment with PCP 4. Pre-DM II - Continue metformin 5. HLD - Continue atorvastatin - FLP reviewed - ASCVD risk 2.5% (10-year), will keep current statin dose, no indication for ASA at this time 6. Seasonal allergies - Continue home meds 7. Constipation - May be contributing to pain but unlikely source of acute pain this visit - Continue high fiber and stool softeners - Consider sooner f/u with GI as above - Denies melena or BRBPR PPX: SCDs, protonix Dispo: D/C today with f/u with PCP within 1 week <Lorena Mireles - Last Filed: 03/28/18 08:17> Attending Addendum - Attending Addendum Date/Time: 03/28/18 1006 I personally evaluated the patient and discussed the management with Dr. Mireles I agree with the History, Examination, Assessment and Plan documented above with any addition or exceptions noted below.POD # 1 patient tolerated breakfast to ambulate later today Ok per discharge per primary Care. Will await Dr Ramiro bacon on dismissal later today. <Александр Howe - Last Filed: 03/28/18 10:08>
[2018-03-28 07:56] VITALS: TEMP 98
[2018-03-28] MEDS: metFORMIN 500 MG TAB PO SCH (08:16)
[2018-03-28] MEDS: Aspirin 81 mg Enteric Coated Tablet PO SCH (08:17)
[2018-03-28] MEDS: Docusate 100 MG CAP PO SCH (08:17)
[2018-03-28] MEDS: Cyanocobalamin (Vitamin B-12) 1,000 MCG TAB PO SCH (08:20)
[2018-03-28] MEDS: Hydrochlorothiazide 25 MG TAB PO SCH (08:20)
[2018-03-28] MEDS: Fluticasone Propionate Nasal Spray 16 gm Bottle NASAL SCH (08:20)
[2018-03-28] MEDS: Famotidine 20 MG TAB PO SCH (08:20)
[2018-03-28] MEDS: Magnesium Oxide 250 MG TAB PO SCH (08:20)
[2018-03-28] MEDS: Lisinopril 20 MG TAB PO SCH (08:20)
[2018-03-28] MEDS: Zinc Sulfate 220 MG CAP PO SCH (08:21)
[2018-03-28] MEDS: Multivit, Therapeutic 1 TAB PO SCH (08:21)
--- NOTE | 2018-03-28 09:39 | PDOC.OP ---
Operative Note - Operative Note Operative Note: PROCEDURE: Laparoscopic cholecystectomy with intraoperative cholangiogram SURGEON: Sasha Rubio M.D. DATE OF PROCEDURE: 03/27/2018 PREOPERATIVE DIAGNOSIS: Cholelithiasis and cholecystitis, possible choledocholithiasis: POSTOPERATIVE DIAGNOSIS: Cholelithiasis and cholecystitis HISTORY: Patient with substernal chest pain and negative cardiac workup with gallbladder sludge, wall thickening and pericholecystic fluid on gallbladder ultrasound and elevated LFTs. Recommendation was made. Serous laparoscopic cholecystectomy with intraoperative cholangiogram. FINDINGS: White walled inflamed hemorrhagic and possibly necrotic gallbladder with extensive omental and duodenal adhesions. Cholangiogram initially did not show any opacification of the distal bile duct but then showed normal opacification and flow into the duodenum. PROCEDURE IN DETAIL: After informed consent was obtained and appropriate preoperative antibiotics were administered, the patient was taken to the operating room and placed in the supine position and general endotracheal anesthesia was administered. The stomach was decompressed with an OG tube and the abdomen was prepped and draped in standard sterile fashion. Local anesthesia was infused to the skin and subcutaneous tissues at the umbilical level. A transverse skin incision was made. The fascia was elevated and a Veress needle was placed into the abdominal cavity without difficulty. Opening pressure was less than 5 and carbon dioxide gas easily insufflated to an intra- abdominal pressure of 15, which the patient tolerated well. The Veress needle was withdrawn and a [place] port advanced under direct vision. The abdominal cavity was carefully examined. There was no evidence of Veress needle or of trocar injury. There were some omental adhesions lateral to the location of the Veress needle and trocar placement but no small bowel adhesions. Local anesthesia was infused to the skin and subcutaneous tissues at the epigastric, right upper quadrant, and right lateral abdominal sites and trocars were placed under direct vision of the laparoscope. The fundus of the gallbladder was barely visible due to omental adhesions. The omentum was grasped and retracted laterally and the adhesions taken down through the avascular plane exposing the fundus of the gallbladder which was then grasped and retracted superiorly. The remainder of the omental adhesions were taken down through the avascular plane using careful electrocautery as necessary. Some adhesions to the liver capsule were likewise taken down using electrocautery. As the infundibulum was approached the duodenum was noted to have adhesions to the gallbladder as well these were carefully taken down through the avascular plane avoiding electrocautery and the vicinity of the duodenum. The infundibulum was grasped and retracted laterally. The serosa was stripped inferiorly at the level of the neck of the gallbladder exposing the cystic duct and artery which were traced clearly to their insertion in the gallbladder. These were dissected free circumferentially and the cystic duct was clipped at the level of the neck of the gallbladder. The cystic artery was clipped but not divided. An incision was made in the cystic duct inferior to the clip and the cystic duct was palpated with no stones palpable. Clear bile was seen to flow from the cystic duct incision. A cholangiogram catheter was introduced and placed into the cystic duct and secured with a clip. A cholangiogram was obtained which showed an adequate length of cystic duct. Initially the distal common bile duct did not fill, but then the contrast flowed through the distal common bile duct into the duodenum. It was felt that this could have represented dislodging of sludge from the distal common bile duct or possibly just relaxation of the sphincter. There was normal retrograde flow into the common hepatic duct beyond the level of the bifurcation without filling defects. The cholangiogram catheter was removed and the cystic duct clipped below the incision in the cystic duct. The cystic duct was divided between these clips and the previously placed clip. The cystic artery was clipped and divided between the previously placed clips. The gallbladder was then dissected free of the gallbladder bed using hook electrocautery. An additional branch of the cystic artery was encountered posterior to the cystic duct and clipped and divided. The gallbladder was very friable and tore with retraction with spillage of some bile which was suctioned out. Gallbladder also tore from the gallbladder wall with bleeding from the gallbladder bed. This was controlled with clipping of a vein in the gallbladder bed and electrocautery of the liver superior to this. Prior to complete removal of the gallbladder from the gallbladder bed, the area of the cystic duct and artery stumps was examined. The clips were in good position completely across these structures and there was no bleeding and no leakage of bile. The gallbladder was then placed into an EndoCatch bag and drawn out through the epigastric incision. The epigastric trocar was replaced and the operative site easily irrigated to clear. There was no ongoing bleeding but due to the inflamed nature of the gallbladder and significant amount of intraoperative oozing from the liver bed decision was made to place wrist to the gallbladder bed. This was applied and excellent hemostasis verified. The epigastric trocar was removed and the fascia closed under direct laparoscopic vision with a 0 Vicryl suture on a GraNee needle in a [id number] manner with excellent technical result. The right upper quadrant and right lateral abdominal trocars were removed and hemostasis verified. Carbon dioxide gas was allowed to desufflate through the umbilical trocar which was then removed. The skin incisions were closed with 4-0 subcuticular Monocryl sutures and Dermabond dressings were placed. The patient was extubated and taken to the recovery room in good condition. There were no complications. ESTIMATED BLOOD LOSS: 150 ml. SPECIMEN : Gallbladder and contents.
[2018-03-28] MEDS ORDERED: Sodium Chloride 0.9% 1,000 ML IV SCH (09:45)
[2018-03-28] MEDS: HYDROcodone/Acetaminophen 7.5/325 mg Tablet PO PRN ×2 (11:23→15:21)
[2018-03-28 11:41] VITALS: BP 106/56
--- NOTE | 2018-03-29 09:24 | DIS-2 ---
DATE OF ADMISSION: 03/25/2018 DATE OF DISCHARGE: 03/28/2018 RESIDENT: Lorena Mireles MD ADMITTING ATTENDING: Carlo Lucero MD DISCHARGE ATTENDING: Александр Howe MD CONSULTATION: Dr. Rubio with General Surgery. PROCEDURES: 1. Chest x-ray (03/25/2018): No acute findings. 2. Chest thorax CTA (03/25/2018): No CT angiographic evidence of pulmonary embolism. 3. Stress test nuclear medicine (03/26/2018): Normal post-stress myocardial perfusion scan. 4. Abdominal ultrasound (03/26/2018): Edematous appearance of gallbladder wall with trace amount of pericholecystic fluid and small amount of sludge. No gallbladder calculi were seen. In the correct clinical scenario, findings could be attributable to acalculous cholecystitis. Hepatobiliary study may be helpful for further evaluation. Common bile duct is normal in caliber. Mild fatty infiltrati on of the liver. 5. Cholangiogram (03/27/2018): Status post cholecystectomy. Nonspecific mild dilation of the bilia ry tree without evidence of high-grade obstruction. 6. Cholecystectomy on 03/27/2018. ADMISSION DIAGNOSIS: Atypical chest pain. DISCHARGE DIAGNOSES: 1. Acalculous cholecystitis. 2. Normal stress test. 3. Hypertension. 4. Hyperlipidemia. 5. Prediabetes. 6. Nonalcoholic fatty liver disease. 7. Constipation. 8. Seasonal allergies. 9. Possible gastroesophageal reflux. DISCHARGE MEDICATIONS: 1. Metformin 500 mg p.o. b.i.d. 2. Lisinopril 20 mg p.o. daily. 3. Hydrochlorothiazide 25 mg p.o. daily. 4. Lipitor 20 mg p.o. at bedtime. 5. Protonix 40 mg p.o. daily. 6. Bentyl 20 mg p.o. q.i.d. p.r.n. spasm. 7. Fluticasone 1 spray in each naris daily. 8. Magnesium 100 mg p.o. daily. 9. Folic acid, multivitamin 1 tab p.o. daily. 10. Ex-lax 15 mg p.o. daily p.r.n. 11. Docusate 50 mg p.o. daily p.r.n. constipation. 12. Vitamin B12, 1000 mcg p.o. daily. 13. Zinc 50 mg p.o. daily. 14. Pain medication per Dr. Rubio, which I believe she takes hydrocodone 7.5/325 one to two tabs q .4 hours p.r.n. pain. HISTORY OF PRESENT ILLNESS AND HOSPITAL COURSE: Ms. Coelho is a 57-year-old female with past medical history of hypertension and prediabetes. She presented to the emergency room with acute onset of ch est pain. She was babysitting her granddaughter and the chest pain came on suddenly. It was associa soham with nausea, vomiting, and diaphoresis. She presented to the ER and had no EKG findings as well as negative troponins. Although it has been years since her last cardiac workup. She had a stress t est performed, which was normal. The patient said she had had approximately 50 pounds of weight loss in the last year and half, which may have precipitated gallstones. A right upper quadrant ultrasoun d was performed, which showed gallbladder sludge and likely acalculous cholecystitis. Dr. Rubio wa s consulted and the patient underwent a laparoscopic cholecystectomy on 03/26/2018. At this time, he r chest pain has completely resolved and she is stable for discharge with followup with her PCP and C ardiology outpatient. DISPOSITION: Stable. DISCHARGE INSTRUCTIONS: 1. Location: Home. 2. Diet: Heart healthy. 3. Activity: As tolerated. 4. Followup: With PCP within 1 week of discharge, as well as Cardiology within [address] Fred cain as directed.
== END 2018-03-28 15:33 | disposition home or self-care (01) ==
LOC: ERS 17:25 → 2SW 22:35
PROVIDERS: ADMIT Family Medicine; ATTEND Family Medicine
PROC: 0FT44ZZ Resection of Gallbladder, Percutaneous Endoscopic Approach (ICD-10-PCS; principal; 2018-03-27)
PROC: BF13YZZ Fluoroscopy of Gallbladder and Bile Ducts using Other Contrast (ICD-10-PCS; 2018-03-27)
DX: K81.1 Chronic cholecystitis (principal); R07.89 Other chest pain; I10 Essential (primary) hypertension; E78.5 Hyperlipidemia, unspecified; K76.0 Fatty (change of) liver, not elsewhere classified; J30.2 Other seasonal allergic rhinitis; E11.9 Type 2 diabetes mellitus without complications; K59.00 Constipation, unspecified; Z79.84 Long term (current) use of oral hypoglycemic drugs; Z79.899 Other long term (current) drug therapy; Z79.82 Long term (current) use of aspirin
CPT/HCPCS: 36415; 36416; 47532; 71045; 71275; 76705; 78452; 80048; 80053; 80061; 80076; 81003; 82553; 83036; 83690; 83735; 83880; 84484; 85025; 88304; 93005; 93017; 94760; 96360; 96361; 96365; 96366; 96374; 96375; 96376; A4216; A9500; G0378; J0153; J1100; J1610; J2001; J2270; J2405; J2543; J2704; J3010; J7050; Q0162; Q9961

== ENCOUNTER 2019-01-03 09:36 | Outpatient (CLI) | payer BC ==
--- NOTE | 2019-01-04 11:56 | MMO ---
Bilateral MAMMO Bilat Screen [facility]. CLINICAL HISTORY: Patient is 58 years old and is seen for screening. The patient has no family history of breast cancer. The patient has no personal history of cancer. The patient has a history of left Excisional Biopsy in August, - benign. VIEWS: The views performed were: bilateral craniocaudal with tomosynthesis and bilateral mediolateral oblique with tomosynthesis. FILMS COMPARED: The present examination has been compared to prior imaging studies performed at [facility] on 04/03/2009, 05/19/2010, 06/03/2011, 06/13/2012, 08/01/2013, 03/24/2016 and 12/07/2017, and at [facility] [place] on 01/25/2007 and 01/29/2008. MAMMOGRAM FINDINGS: There are scattered fibroglandular densities. Finding 1: There is a stable mass seen in the left breast. Finding 2: There are benign appearing calcifications seen in both breasts. There are no suspicious masses, suspicious calcifications, or new areas of architectural distortion. IMPRESSION: THERE IS NO MAMMOGRAPHIC EVIDENCE OF MALIGNANCY. A ROUTINE FOLLOW-UP MAMMOGRAM IN 1 YEAR IS RECOMMENDED. THE RESULTS OF THIS EXAM WERE SENT TO THE PATIENT. ACR BI-RADS Category 2 - Benign finding MAMMOGRAPHY NOTE: 1. A negative mammogram report should not delay a biopsy if a dominant of clinically suspicious mass is present. 2. Approximately 10% to 15% of breast cancers are not detected by mammography. 3. Adenosis and dense breasts may obscure an underlying neoplasm.
== END 2019-01-03 09:37 | disposition home or self-care (01) ==
LOC: BICMAMMO 09:36
PROVIDERS: ATTEND Obstetrics & Gynecology
DX: Z12.31 Encounter for screening mammogram for malignant neoplasm of breast (principal)
CPT/HCPCS: 77063; 77067

== ENCOUNTER 2021-09-23 11:02 | Outpatient (CLI) | payer BC | END 2021-09-23 11:03 | disposition home or self-care (01) | LOC: BICMAMMO 11:02 | PROVIDERS: ATTEND Obstetrics & Gynecology | DX: Z12.31 Encounter for screening mammogram for malignant neoplasm of breast (principal); N63.20 Unspecified lump in the left breast, unspecified quadrant | CPT/HCPCS: 77063; 77067 ==

== ENCOUNTER 2021-10-05 11:08 | Outpatient (CLI) | payer BC | END 2021-10-05 11:09 | disposition home or self-care (01) | LOC: BICULT 11:08 | PROVIDERS: ATTEND Obstetrics & Gynecology | DX: R92.8 Other abnormal and inconclusive findings on diagnostic imaging of breast (principal) ==

== ENCOUNTER 2021-11-30 10:25 | Outpatient (CLI) | payer BC ==
[2021-11-30 11:58] LABS: #Basophils 0.1 10x3/uL (0.0-0.2); #Eosinphils 0.1 10x3/uL (0.0-0.5); #Monocytes 0.5 10x3/uL (0.0-1.1); #Neutrophils 4.2 10x3/uL (1.5-8.4); %Basophils 0.7 % (0.0-2.0); %Eosinophils 1.5 % (0.0-6.0); %Lymphocytes 33.4 % (18.0-47.0); %Monocytes 7.1 % (0.0-10.0); %Neutrophils 56.8 % (40.0-75.0); Hemoglobin 14.5 g/dL (12.0-15.5); Mean Corpuscular HGB CONC 33.7 g/dL (32.0-36.0); Mean Corpuscular Hemoglobin 29.5 pg (27.0-33.0); Mean Corpuscular Volume 87.6 fl (81.6-98.3); Mean Platelet Volume 10.3 fl (7.4-10.4); Platelet Count 319 10x3/uL (150-450); Red Blood Cell (RBC) Count 4.91 10x6/uL (3.90-5.03); White Blood Cell (WBC) Count 7.3 10x3/uL (3.5-10.5)
[2021-11-30 12:16] LABS: Anion Gap 14 mmol/L (10-20); BUN (Urea Nitrogen) 10 mg/dL (9.8-20.1); Calc. Creatinine Clearance 0 mL/min (70-130); Carbon Dioxide 22 mmol/L (23-31); Chloride 109 mmol/L (98-107); Glucose 109 mg/dL (80-115); Potassium 4.3 mmol/L (3.5-5.1); Sodium 141 mmol/L (136-145)
== END 2021-11-30 10:26 | disposition home or self-care (01) ==
LOC: LABBT 10:25
PROVIDERS: ATTEND Surgery
DX: Z01.818 Encounter for other preprocedural examination (principal); C50.912 Malignant neoplasm of unspecified site of left female breast
CPT/HCPCS: 71046; 80048; 85025; 93005; 93010

== ENCOUNTER 2022-02-01 15:06 | Outpatient (CLI) | payer BC | END 2022-02-01 15:07 | disposition home or self-care (01) | LOC: BICMAMMO 15:06 | PROVIDERS: ATTEND Internal Medicine Hematology & Oncology | DX: Z13.820 Encounter for screening for osteoporosis (principal); N95.8 Other specified menopausal and perimenopausal disorders; C50.212 Malignant neoplasm of upper-inner quadrant of left female breast; T38.6X5A Adverse effect of antigonadotrophins, antiestrogens, antiandrogens, not elsewhere classified, initial encounter; M85.89 Other specified disorders of bone density and structure, multiple sites | CPT/HCPCS: 77080 ==

== ENCOUNTER 2022-09-29 10:24 | Outpatient (CLI) | payer BC | END 2022-09-29 10:25 | disposition home or self-care (01) | LOC: BICMAMMO 10:24 | PROVIDERS: ATTEND Surgery | DX: Z08 Encounter for follow-up examination after completed treatment for malignant neoplasm (principal); Z85.3 Personal history of malignant neoplasm of breast | CPT/HCPCS: 77066; G0279 ==

== ENCOUNTER 2023-05-23 15:24 | Outpatient (CLI) | payer BC | END 2023-05-23 15:25 | disposition home or self-care (01) | LOC: BICMAMMO 15:24 | PROVIDERS: ATTEND Internal Medicine Hematology & Oncology | DX: Z13.820 Encounter for screening for osteoporosis (principal); M85.88 Other specified disorders of bone density and structure, other site | CPT/HCPCS: 77080 ==

== ENCOUNTER 2024-08-27 11:22 | Outpatient (CLI) | payer BC | END 2024-08-27 11:23 | disposition home or self-care (01) | LOC: BICRAD 11:22 | PROVIDERS: ATTEND Family Medicine | DX: M54.50 Low back pain, unspecified (principal); M43.17 Spondylolisthesis, lumbosacral region; M47.816 Spondylosis without myelopathy or radiculopathy, lumbar region; M47.817 Spondylosis without myelopathy or radiculopathy, lumbosacral region | CPT/HCPCS: 72100 ==

== ENCOUNTER 2024-09-17 10:06 | Outpatient (CLI) | payer MEDICARE | END 2024-09-17 10:07 | disposition home or self-care (01) | LOC: ULT 10:06 | PROVIDERS: ATTEND Family Medicine | DX: R10.84 Generalized abdominal pain (principal) | CPT/HCPCS: 76700 ==

== ENCOUNTER 2025-06-22 16:28 | Inpatient (IN) | payer MEDICARE ==
[2025-06-22 17:56] LABS: Bacteria/HPF 1+ HPF (None Seen); CAUTI Indications for Culture Pelvic or flank pain; Glucose, Urine (Dipstick) Normal (Negative); Leukocyte 500 Leu/uL (Negative); Protein, Urine (Dipstick) 20 mg/dL (Neg-Trace); RBC/HPF 21-50 HPF (0-3); Specific Gravity, Urine 1.012 (1.002-1.036); WBC/HPF Greater than 50 HPF (0-3)
[2025-06-22 17:57] LABS: Urine Culture Reflex Yes Yes
[2025-06-22 18:16] LABS: #Basophils 0.04 10x3/uL (0.0-0.2); #Eosinophils Less than 0.03 10x3/uL (0.0-0.7); #Monocytes 0.67 10x3/uL (0.11-0.59); #Neutrophils 6.78 10x3/uL (1.40-6.50); %Basophils 0.4 % (0.0-1.0); %Eosinophils 0.2 % (0.0-10.0); %Lymphocytes 20.9 % (21.0-51.0); %Monocytes 7.0 % (0.0-10.0); %Neutrophils 71.2 % (42.0-75.0); Hematocrit 36.6 % (36.0-47.0); Hemoglobin 11.4 g/dL (12.0-16.0); Mean Corpuscular Hemoglobin 29.2 pg (27.0-31.0); Mean Corpuscular Volume 93.8 fL (78.0-98.0); Platelet Count 216 10x3/uL (130-400); Red Blood Cell (RBC) Count 3.90 mill/uL (4.20-5.40); White Blood Cell (WBC) Count 9.53 10x3/uL (4.8-10.8)
[2025-06-22 18:37] LABS: ALT (SGPT) 13 U/L (Less than 34); AST (SGOT) 15 U/L (11-34); Albumin 3.3 g/dL (3.1-4.5); Alkaline Phosphatase 79 U/L (40-110); Anion Gap 15 mmol/L (10-20); BUN (Urea Nitrogen) 60 mg/dL (9.8-20.1); Bilirubin, Total 0.8 mg/dL (0.3-1.2); Calc. Creatinine Clearance 0 mL/min (70-130); Calcium 8.5 mg/dL (7.8-10.44); Carbon Dioxide 11 mmol/L (23-31); Chloride 118 mmol/L (98-107); Globulin 2.8 g/dL (2.4-3.5); Glucose 77 mg/dL (80-115); Lipase 94 U/L (8-78); Magnesium 1.8 mg/dL (1.6-2.6); Potassium 5.9 mmol/L (3.5-5.1); Sodium 138 mmol/L (136-145)
[2025-06-22] MEDS ORDERED: cefTRIAXone (ROCEPHIN) 2 GM VIAL ONE (20:56)
[2025-06-22 21:48] LABS: Bacteria/HPF 2+ HPF (None Seen); CAUTI Indications for Culture Immunosuppressed; Glucose, Urine (Dipstick) Normal (Negative); Leukocyte 250 Leu/uL (Negative); Protein, Urine (Dipstick) 10 mg/dL (Neg-Trace); Specific Gravity, Urine 1.013 (1.002-1.036); WBC/HPF 21-50 HPF (0-3)
[2025-06-22 23:54] VITALS: BMI 34.4
[2025-06-23] MEDS ORDERED: Glucagon 1 MG/ML KIT IM PRN (00:40)
[2025-06-23] MEDS ORDERED: Dextrose 50% Abboject 50 ML SYRINGE SLOW IVP PRN ×2 (00:40→13:06)
[2025-06-23] MEDS ORDERED: Melatonin 3 MG TAB PO PRN (00:40)
[2025-06-23] MEDS ORDERED: Acetaminophen 325 MG TAB PO PRN (00:40)
[2025-06-23 02:39] LABS: Magnesium 1.6 mg/dL (1.6-2.6)
[2025-06-23 04:21] LABS: #Basophils 0.03 10x3/uL (0.0-0.2); #Eosinophils Less than 0.03 10x3/uL (0.0-0.7); #Monocytes 0.63 10x3/uL (0.11-0.59); #Neutrophils 5.23 10x3/uL (1.40-6.50); %Basophils 0.3 % (0.0-1.0); %Eosinophils 0.2 % (0.0-10.0); %Lymphocytes 31.2 % (21.0-51.0); %Monocytes 7.3 % (0.0-10.0); %Neutrophils 60.7 % (42.0-75.0); Hematocrit 32.4 % (36.0-47.0); Hemoglobin 10.3 g/dL (12.0-16.0); Mean Corpuscular Hemoglobin 29.4 pg (27.0-31.0); Mean Corpuscular Volume 92.6 fL (78.0-98.0); Platelet Count 195 10x3/uL (130-400); Red Blood Cell (RBC) Count 3.50 mill/uL (4.20-5.40); White Blood Cell (WBC) Count 8.63 10x3/uL (4.8-10.8)
[2025-06-23 04:34] LABS: ALT (SGPT) 12 U/L (Less than 34); AST (SGOT) 17 U/L (11-34); Albumin 2.8 g/dL (3.1-4.5); Alkaline Phosphatase 72 U/L (40-110); Anion Gap 12 mmol/L (10-20); BUN (Urea Nitrogen) 51 mg/dL (9.8-20.1); Bilirubin, Total 0.8 mg/dL (0.3-1.2); Calc. Creatinine Clearance 26 mL/min (70-130); Calcium 8.0 mg/dL (7.8-10.44); Carbon Dioxide 13 mmol/L (23-31); Chloride 120 mmol/L (98-107); Globulin 2.7 g/dL (2.4-3.5); Glucose 78 mg/dL (80-115); Potassium 5.3 mmol/L (3.5-5.1); Sodium 140 mmol/L (136-145)
[2025-06-23 06:27] LABS: Base Excess -12.1 mEq/L (-2.0 to +3.0); Calcium, Ionized (venous) 1.18 mmol/L (1.16-1.32); Chloride (VBG) 118 mmol/L (98-106); Hematocrit-VBG 34 % (36.0-47.0); Hemoglobin (Hb) 11.5 g/dL (11.7-16.1); Potassium (VBG) 5.18 mmol/L (3.70-5.30); Sodium 138 mmol/L (133-146)
[2025-06-23] MEDS: LOKELMA 10 GM PACKET PO SCH ×2 (09:55→15:50)
[2025-06-23] MEDS ORDERED: PROPOFOL 20 ML ONE (11:37)
[2025-06-23] MEDS ORDERED: Lidocaine 1% PF 5 ML VIAL ONE (11:38)
[2025-06-23] MEDS ORDERED: Ondansetron PF 4 MG/2 ML Vial ONE (11:38)
[2025-06-23] MEDS ORDERED: SUCCINYLCHOLINE/SOD CL,ISO/PF 200 MG/10 ML SYRINGE FS ONE (11:47)
[2025-06-23 12:24] LABS: Anion Gap 14 mmol/L (10-20); BUN (Urea Nitrogen) 45 mg/dL (9.8-20.1); Calc. Creatinine Clearance 28 mL/min (70-130); Calcium 8.5 mg/dL (7.8-10.44); Carbon Dioxide 14 mmol/L (23-31); Chloride 119 mmol/L (98-107); Glucose 80 mg/dL (80-115); Potassium 5.9 mmol/L (3.5-5.1); Sodium 141 mmol/L (136-145)
[2025-06-23 13:04] VITALS: BMI 34.4
[2025-06-23] MEDS: Albuterol 2.5 MG (3 mL) NEB NEB SCH (14:57)
[2025-06-23] MEDS: CALCIUM GLUC 1 GM/NS 50 ML 1 GM in Premix 1 BAG IVPB SCH (16:55)
[2025-06-23 17:22] LABS: Anion Gap 11 mmol/L (10-20); BUN (Urea Nitrogen) 42 mg/dL (9.8-20.1); Calc. Creatinine Clearance 31 mL/min (70-130); Calcium 8.3 mg/dL (7.8-10.44); Carbon Dioxide 12 mmol/L (23-31); Chloride 120 mmol/L (98-107); Glucose 101 mg/dL (80-115); Potassium 5.2 mmol/L (3.5-5.1); Sodium 138 mmol/L (136-145)
[2025-06-23 19:45] LABS: Potassium 4.9 mmol/L (3.5-5.1)
[2025-06-23] MEDS: cefTRIAXone\\ROCEPHIN 2 GM in Sodium Chloride 0.9% 100 ML IVPB SCH (21:08)
[2025-06-24 04:26] LABS: #Basophils 0.04 10x3/uL (0.0-0.2); #Eosinophils 0.15 10x3/uL (0.0-0.7); #Monocytes 0.65 10x3/uL (0.11-0.59); #Neutrophils 3.88 10x3/uL (1.40-6.50); %Basophils 0.6 % (0.0-1.0); %Eosinophils 2.1 % (0.0-10.0); %Lymphocytes 34.0 % (21.0-51.0); %Monocytes 9.1 % (0.0-10.0); %Neutrophils 53.9 % (42.0-75.0); Hematocrit 32.4 % (36.0-47.0); Hemoglobin 10.5 g/dL (12.0-16.0); Mean Corpuscular Hemoglobin 29.4 pg (27.0-31.0); Mean Corpuscular Volume 90.8 fL (78.0-98.0); Platelet Count 195 10x3/uL (130-400); Red Blood Cell (RBC) Count 3.57 mill/uL (4.20-5.40); White Blood Cell (WBC) Count 7.18 10x3/uL (4.8-10.8)
[2025-06-24 04:39] LABS: ALT (SGPT) 11 U/L (Less than 34); AST (SGOT) 23 U/L (11-34); Albumin 2.6 g/dL (3.1-4.5); Alkaline Phosphatase 73 U/L (40-110); Anion Gap 13 mmol/L (10-20); BUN (Urea Nitrogen) 35 mg/dL (9.8-20.1); Bilirubin, Total 0.7 mg/dL (0.3-1.2); Calc. Creatinine Clearance 34 mL/min (70-130); Calcium 8.1 mg/dL (7.8-10.44); Carbon Dioxide 14 mmol/L (23-31); Chloride 117 mmol/L (98-107); Globulin 2.6 g/dL (2.4-3.5); Glucose 89 mg/dL (80-115); Potassium 4.6 mmol/L (3.5-5.1); Sodium 139 mmol/L (136-145)
[2025-06-24 07:57] LABS: Actual Bicarbonate (HCO3v) 13.5 mEq/L (22-28)
[2025-06-24] MEDS ORDERED: Vancomycin Dose by Levels Sliding Scale (Wt 71-99) FS SCH (15:00)
[2025-06-24] MEDS: VANCOMYCIN 2 GRAM/400 ML Premix BAG IVPB SCH (16:38)
[2025-06-24] MEDS ORDERED: cefTRIAXone\\ROCEPHIN 2 GM in Sodium Chloride 0.9% 100 ML IVPB SCH (23:00)
[2025-06-24] MEDS ORDERED: VANCOMYCIN 2 GRAM/400 ML BAG IVPB SCH (23:59)
[2025-06-25 03:48] LABS: #Basophils 0.06 10x3/uL (0.0-0.2); #Eosinophils 0.25 10x3/uL (0.0-0.7); #Monocytes 0.77 10x3/uL (0.11-0.59); #Neutrophils 4.45 10x3/uL (1.40-6.50); %Basophils 0.7 % (0.0-1.0); %Eosinophils 3.0 % (0.0-10.0); %Lymphocytes 33.8 % (21.0-51.0); %Monocytes 9.2 % (0.0-10.0); %Neutrophils 53.1 % (42.0-75.0); Hematocrit 34.5 % (36.0-47.0); Hemoglobin 11.2 g/dL (12.0-16.0); Mean Corpuscular Hemoglobin 29.3 pg (27.0-31.0); Mean Corpuscular Volume 90.3 fL (78.0-98.0); Platelet Count 210 10x3/uL (130-400); Red Blood Cell (RBC) Count 3.82 mill/uL (4.20-5.40); White Blood Cell (WBC) Count 8.39 10x3/uL (4.8-10.8)
[2025-06-25 04:14] LABS: ALT (SGPT) 11 U/L (Less than 34); AST (SGOT) 16 U/L (11-34); Albumin 2.9 g/dL (3.1-4.5); Alkaline Phosphatase 77 U/L (40-110); Anion Gap 13 mmol/L (10-20); BUN (Urea Nitrogen) 24 mg/dL (9.8-20.1); Bilirubin, Total 0.8 mg/dL (0.3-1.2); Calc. Creatinine Clearance 40 mL/min (70-130); Calcium 8.6 mg/dL (7.8-10.44); Carbon Dioxide 15 mmol/L (23-31); Chloride 114 mmol/L (98-107); Globulin 2.7 g/dL (2.4-3.5); Glucose 92 mg/dL (80-115); Potassium 4.2 mmol/L (3.5-5.1); Sodium 138 mmol/L (136-145)
[2025-06-25] MEDS: PNEUMOC 20-VAL CONJ-DIP CRM/PF 0.5 ML SYRINGE IM ONE (09:49)
[2025-06-25 12:14] VITALS: BP 135/75; TEMP 98.1
[2025-06-25] MEDS ORDERED: Linezolid 600 MG TAB PO SCH (21:00)
== END 2025-06-25 13:59 | disposition home or self-care (01) | DRG 660 ==
LOC: ERS 16:28 → SURG B 21:59 → PCU 06-23 00:54 → OBSVTOIN 06-23 09:46
PROVIDERS: ADMIT Family Medicine; ATTEND Family Medicine
PROC: 0T768DZ Dilation of Right Ureter with Intraluminal Device, Via Natural or Artificial Opening Endoscopic (ICD-10-PCS; principal; 2025-06-23)
PROC: BT1D1ZZ Fluoroscopy of Right Kidney, Ureter and Bladder using Low Osmolar Contrast (ICD-10-PCS; 2025-06-23)
PROC: 3E03329 Introduction of Other Anti-infective into Peripheral Vein, Percutaneous Approach (ICD-10-PCS; 2025-06-23)
PROC: 3E0234Z Introduction of Serum, Toxoid and Vaccine into Muscle, Percutaneous Approach (ICD-10-PCS; 2025-06-25)
DX: N13.6 Pyonephrosis (principal); E87.20 Acidosis, unspecified; R78.81 Bacteremia; N17.9 Acute kidney failure, unspecified; I95.9 Hypotension, unspecified; E11.9 Type 2 diabetes mellitus without complications; E78.5 Hyperlipidemia, unspecified; I10 Essential (primary) hypertension; Z96.653 Presence of artificial knee joint, bilateral; Z23 Encounter for immunization; E87.5 Hyperkalemia; N20.0 Calculus of kidney; Z79.899 Other long term (current) drug therapy; Z98.890 Other specified postprocedural states; Z90.49 Acquired absence of other specified parts of digestive tract; Z90.710 Acquired absence of both cervix and uterus; Z87.442 Personal history of urinary calculi; Z85.3 Personal history of malignant neoplasm of breast; B95.2 Enterococcus as the cause of diseases classified elsewhere
CPT/HCPCS: 36415; 36416; 74176; 74420; 80053; 81001; 82805; 83605; 83690; 83735; 84100; 84443; 85025; 87040; 87077; 87086; 87186; 90471; 90677; 93005; 93010; 93306; C1769; G0009; G0378; J0613; J0696; J1815; J2704; J3375; J7120; Q9967

== ENCOUNTER 2025-07-03 13:41 | Outpatient (CLI) | payer MEDICARE | END 2025-07-03 13:42 | disposition home or self-care (01) | LOC: BICMAMMO 13:41 | PROVIDERS: ATTEND Internal Medicine Hematology & Oncology | DX: M85.89 Other specified disorders of bone density and structure, multiple sites (principal); C50.212 Malignant neoplasm of upper-inner quadrant of left female breast | CPT/HCPCS: 77080 ==